=== PATIENT | male | born 1985 | race Hispanic/Latino ===

== ENCOUNTER 2016-06-12 06:47 | Day surgery (SDC) | payer OTHER ==
[~2016-06-12] VITALS: Ht 177.8 cm; Wt 93.4 kg
[2016-06-12] VITALS (8 sets, daily range): BP systolic 97–131; BP diastolic 41–71; PULSE 73–99; RESP 12–20; O2SAT 94–98
[2016-06-12] MEDS ORDERED: Dexamethasone 4 mg/mL Inj ONE (06:48)
[2016-06-12] MEDS ORDERED: Ondansetron 2 mg/mL 2 mL Inj ONE (06:48)
[2016-06-12] MEDS ORDERED: fentaNYL-PF 50 mCg/mL 2 mL Inj ONE (06:48)
[2016-06-12] MEDS ORDERED: Propofol 10,000 mCg/mL 20 mL Inj ONE (06:48)
[2016-06-12] MEDS ORDERED: HYDROcodone-APAP 5-325 mg Tablet PO PRN (07:25)
[2016-06-12] MEDS: Lactated Ringer's 1,000 ML IV SCH ×2 (07:30→07:37)
--- NOTE | 2016-06-12 08:06 | PCM.HPANE ---
Patient Data Date of Service: Jun 12, 2016 Surgeon Admitting Provider: Attending Provider:Deion Pedraza DO Primary Care Physician:Esau Shah MD Other Provider:Zoila Jones Anesthesia Reason for Visit Left Wrist Ganglion Ht/WT & BMI Height (Feet): 5 Height (Inches): 10 Weight (Kilograms): 93.4 Body Mass Index 29.00 Allergies Coded Allergies: No Known Allergies (Verified Allergy, Unknown, 07/02/15) Past Anesthesia History Anesthesia History: Denies:: Abnormal Airway, Anesthesia Reactions, Difficult Intubation, Fam Anesthesia Reaction, Fam Malignant Hypertherm, Malignant Hyperthermia Diabetes History Hx Diabetes?: No MRSA MRSA: No Medications Home Meds Incl Beta Erza: No No Active Prescriptions or Reported Meds History History of ENT Problems?: Yes HEENT History: Positive for:: Dysphagia (to pills) Denies:: Abnormal Airway Difficult Intubation Hearing Problem Hx of Heart Problems?: No Cardiovascular History: Denies:: AICD Atrial Fibrillation Chest Pain Congestive Heart Failure Hypertension Pacemaker Valvular Heart Disease Hx of Respiratory Problem?: No Respiratory History: Denies:: Asthma COPD Cough Hemoptysis Pneumonia Tuberculosis Use of C-PAP Machine Hx Neurologic Problems?: No Neurological History: Denies:: CVA Dementia Hx of GI Problems?: Yes Gastrointestinal History: Positive for:: Diverticulitis Gall Bladder Disease (removed) Gastroesphageal Reflux Denies:: Cirrhosis Hiatal Hernia Rectal Bleeding Hx of Problems?: No Male Hx: Denies:: Prostate Problems Scrotal Mass Testicular Surgery Skin History: Denies:: History Skin Disorders? Pressure Ulcers Hx Musculoskeletal Problems?: Yes Musculoskeletal History: Positive for:: Musculoskeletal Trauma (left wrist ganglion cyst current admission problem) Denies:: Back Injury (C/OF BACK PAIN) Joint Replacement Hx of Psycho/Social Problems?: Yes Psycho Social History: Positive for:: Anxiety (SITUATIONAL-ED VISIT 06/2015) Denies:: Hx Depression Hx Surgeries?: Yes (Becky, right wrist ganglion) Hx Any Other Health Problems?: Yes Other History: Denies:: Cancer Endocrine Disease Hospitalization Thyroid Disease History Blood Transfusions: Denies:: Blood Transfusions Hx Diabetes: No Hx Alcohol Use: YesHx Substance Use: No Smoking Status: Never Smoker Have You Smoked inLast 12 mo: No Stop/Bang S-Snoring: Do You Snore Loudly: No T-Tired: feel tired, fatigued: No O-Obsered: Observed not breath: No P-Blood Pressure: treated: No B- Body Mass Index > 35 kg/m2: No A- Age over 50: No N- Neck Large Circumference: No G- Gender Male: Yes ELIANA Total Score: 1 ELIANA Risk Assessment: Low Risk, <3 Yes Risk Assessment Category Category 1A: Patient has history of documented sleep apnea, and HAS NOT received any narcotic, sedative or anesthesia administration during this stay. Category 1B: Patient has history of documented sleep apnea, and HAS received any narcotic , sedative or anesthesia administration during this stay Category 2: Patient has SUSPECTED Obstructive Sleep Apnea, and HAS received any narcotic , sedative or anesthesia administration during this stay. Category 3: Patient has SUSPECTED Obstructive Sleep Apnea and HAS NOT received narcotic, sedative or anesthesia administration during this stay. Category 4: Outpatient in Procedural Areas with known sleep apnea or who screen positive for High Risk via the STOP/BANG questionnaire. Exam Exam Vital Signs Vital Signs Date Time Temp Pulse Resp B/P Pulse Ox O2 Delivery O2 Flow Rate FiO2 06/12/16 07:06 36.3 87 14 131/71 97 Room Air General Appearance: Alert, Oriented X3, Cooperative, No Acute Distress HEENT/AIRWAY: MP 1 Lungs: Clear to Auscultation, Normal Air Movement Heart: Exam Unremarkable, Regular Rate/Rhythm, No Murmurs/Rubs/Gallops Meds/Labs/Diagnostics Admission Meds Current Medications Lactated Ringer's (Lr) 1,000 ml @ 120 mls/hr Q8H20M IV Last administered on t 07:30; Start 06/12/16 at 05:00; Stop 06/12/16 at 13:19 Plan Impression Patient chart reviewed, patient interviewed and anesthestic plan with risks, benefits, and alternatives discussed, and informed consent obtained. NPO Status: mn ASA Physical Status: ASA2 Mod Systemic Disease Anesthetic Plan: GA Bene/Risks/Altern/Consents: Yes HP Complete Prior to Induction: Yes Rogers Le MD Jun 12, 2016 08:06
[2016-06-12] MEDS ORDERED: Lactated Ringer's 500 ML IV PRN (08:21)
[2016-06-12] MEDS ORDERED: Lactated Ringer's 1,000 ML IV SCH (08:21)
[2016-06-12] MEDS ORDERED: Atropine 0.4 mg/mL Inj IVPUSH PRN (08:25)
[2016-06-12] MEDS ORDERED: Phenylephrine 10,000 mCg/mL Inj IVPUSH PRN (08:25)
[2016-06-12] MEDS ORDERED: EPHEDrine Sulfate 50 mg/mL Inj IVPUSH PRN (08:25)
[2016-06-12] MEDS ORDERED: Ondansetron 2 mg/mL 2 mL Inj IVPUSH PRN (08:25)
[2016-06-12] MEDS ORDERED: fentaNYL-PF 50 mCg/mL 2 mL Inj IVPUSH PRN (08:25)
[2016-06-12] MEDS ORDERED: HYDROmorphone 1 mg/mL Inj IVPUSH PRN (08:25)
[2016-06-12] MEDS ORDERED: Labetalol 5 mg/mL 4 mL Inj IV PRN (08:25)
[2016-06-12] MEDS ORDERED: MetoCLOpramide 5 mg/mL 2 mL Inj IVPUSH PRN (08:25)
[2016-06-12] MEDS ORDERED: hydrALAZINE 20 mg/mL Inj IVPUSH PRN (08:25)
[2016-06-12] MEDS ORDERED: Lidocaine 1%-Epi 1:100,000 20 mL Inj INFILTRATE ONE (08:27)
--- NOTE | 2016-06-12 08:43 | PCM.ANEP1 ---
Post Anesthesia Phase 1 PACU Phase 1 Assessment Date of Service: Jun 12, 2016 Vital Signs 36 126/89 75 16 95% FM Level of Alertness: Sleepy, easy to arouse CERDA's with Equal Strength: Yes Pain: No Nausea or Vomiting: No Oxygen Delivery: Simple Mask Lungs: Clear to Auscultation, Normal Air Movement Rogers Le MD Jun 12, 2016 08:43
--- NOTE | 2016-06-12 11:26 | PCM.ANEP2 ---
Post Anesthesia Evaluation ASA/CMS Post Anesthesia Date of Service: Jun 12, 2016 VS in Patient's Normal Range?: Yes Resp Stable; Airway Patent?: Yes CV Function & Hydration Stable: Yes Mental Status Recovered?: Yes Pain control Satisfactory?: Yes N/V Control Satisfactory?: Yes Rogers Le MD Jun 12, 2016 11:26
--- NOTE | 2016-06-12 23:48 | OP ---
[address] [address] OPERATIVE REPORT PATIENT: MIKE SEXTON : 1985 MR#: [id number] ADMIT: 06/12/2016 JOB ID: [id number] DATE OF SURGERY: 06/12/2016 PREOPERATIVE DIAGNOSIS(ES): Left dorsal wrist ganglion. POSTOPERATIVE DIAGNOSIS(ES): Left dorsal wrist ganglion. PROCEDURE: Excision of left dorsal wrist ganglion. SURGEON: Deion Pedraza D.O. ANESTHESIA: General. HISTORY: The patient is a pleasant 30-year-old male that originally presented to me a year ago with bilateral dorsal wrist ganglion. His right-side was the most problematic and he had this excised without any complication. He returned a year later with an increasingly enlarged dorsal wrist ganglion on the left and opted to proceed with the same procedure. He understood the risks, benefits, and indications as he has had the same procedure performed on the contralateral side. All questions were answered. Consent was signed and placed in the chart. PROCEDURE IN DETAIL: The patient was brought to the operative suite and placed supine on the operating table. Surgical time-out was performed and everyone in the room was in agreement. After appropriate anesthesia was obtained, a left upper arm tourniquet was applied, and the left upper extremity was prepped and draped in a sterile fashion. Left upper extremity then exsanguinated and tourniquet inflated to 250 mmHg. A transverse incision was made directly overlying the dorsal wrist ganglion measuring approximately 2 cm in length. Dissection was carried down to the dorsal wrist ganglion. The overlying extensor tendon and retinaculum was well retracted. The ganglion was freed up from the surrounding soft tissues and excised including the stalk. This left a small rent in the dorsal capsule. Copious irrigation was then performed followed by closure of skin with 5-0 nylon in simple interrupted fashion. The patient was then placed into a volar resting splint. ESTIMATED BLOOD LOSS: Less than 1 cc. COMPLICATIONS: None. DISPOSITION: The patient tolerated the procedure well. Anesthesia was reversed. The patient was transferred back to recovery. SPECIMENS: A dorsal wrist ganglion that was disposed of. POSTOPERATIVE PLAN: The patient will follow up in the office in two weeks to remove the patient's splint as well as sutures and then start working on range of motion and scar mobilization.
== END 2016-06-12 23:59 | disposition home or self-care (01) ==
LOC: SAS 06:47
PROVIDERS: ATTEND Orthopaedic Surgery
DX: M67.432 Ganglion, left wrist (principal)
CPT/HCPCS: 25111; J1100; J1885; J2250; J2405; J3010; J7120